=== PATIENT | female | born 1995 | race African-American/Black ===

== ENCOUNTER 2023-03-07 02:05 | Emergency (ER) | payer BC, OTHER ==
[~2023-03-07] VITALS: Ht 170.2 cm; Wt 176.0 kg
[2023-03-07 02:05] VITALS: BP 107/52
== END 2023-03-07 03:06 | disposition left against medical advice (07) ==
LOC: ER 02:05
DX: F41.9 Anxiety disorder, unspecified (principal); Z53.21 Procedure and treatment not carried out due to patient leaving prior to being seen by health care provider